=== PATIENT | male | born 1995 | race African-American/Black ===

== ENCOUNTER 2021-10-28 22:22 | Emergency (ER) | payer OTHER ==
[~2021-10-28] VITALS: Ht 180.3 cm; Wt 77.1 kg
[2021-10-28] MEDS ORDERED: IOHEXOL 300 MG/ML 100ML BOTTLE IJ ONE (22:40)
[2021-10-28] MEDS ORDERED: TETANUS-DIPTH-ACEL PERTUSSIS 0.5ML SYR Tdap IM ONE (23:00)
[2021-10-28] MEDS ORDERED: MORPHINE SULFATE INJ 2 MG/ml SYRG IV ONE (23:00)
[2021-10-28] MEDS ORDERED: ceFAZolin 1GM/50ML 100 ML IV ONE ×2 (23:00→23:15)
[2021-10-28 23:27] LABS: Basophils # (auto) 0 10 ^3/uL (0-0.2); Eosinophils # (auto) 0.1 10 ^3/uL (0-0.8); Hemoglobin 15.5 g/dL (13.5-17.5); Monocytes # (auto) 0.7 10 ^3/uL (0-1.3); Monocytes % (auto) 9.9 % (0.0-12.0); Nucleated Red Blood Cells % 0.1 %; White Blood Cell 7.2 10^3/uL (4.4-10.8)
[2021-10-28 23:36] LABS: Basophils % (auto) 0.5 % (0.0-2.0); Eosinophils % (auto) 1.2 % (0.0-7.0); Hematocrit 48.1 % (41.0-53.0); Lymphocytes # (auto) 1.4 10 ^3/uL (0.4-5.4); Mean Corpuscular Hemoglobin 27.7 pg (28.0-32.0); Mean Corpuscular Hgb Conc. 32.2 g/dL (32.0-36.0); Neutrophils # (auto) 4.9 10 ^3/uL (1.6-8.6); Neutrophils % (auto) 68.4 % (37.0-80.0); Red Blood Cells 5.59 10^6/uL (4.5-5.90); Red Cell Distribution Width 14.6 % (11.8-14.3)
[2021-10-28 23:37] LABS: Albumin 3.8 g/dL (3.4-5.0); Calcium 8.6 mg/dL (8.5-10.1); Potassium 3.1 mmol/L (3.5-5.1)
[2021-10-28 23:40] LABS: BUN/Creatinine Ratio 8.9; Bilirubin, Total 0.3 mg/dL (0.2-1.0)
[2021-10-29] VITALS: BP 131/88
[2021-10-29] MEDS ORDERED: POTASSIUM CHL 20 Meq TABLET PO ONE
[2021-10-29] MEDS ORDERED: LIDOCAINE 1% HCL (LOCAL ANESTH.) INJ 20ML MDV IJ ONE (00:15)
[2021-10-29] MEDS ORDERED: BACITRACIN TOP OINT 1 UD PKG TOP ONE (04:00)
== END 2021-10-29 05:43 | disposition home or self-care (01) ==
LOC: EDBD 22:22 → ER 22:22
DX: S41.112A Laceration without foreign body of left upper arm, initial encounter (principal); M85.612 Other cyst of bone, left shoulder; X99.1XXA Assault by knife, initial encounter; Y93.89 Activity, other specified; Y92.89 Other specified places as the place of occurrence of the external cause; Y99.8 Other external cause status
CPT/HCPCS: 12002; 36415; 73200; 80053; 85025; 86850; 86900; 86901; 90471; 90715; 93005; 96365; 96375; 99285; J0690; J2001; J2270; Q9967

== ENCOUNTER 2021-11-10 07:44 | Emergency (ER) | payer OTHER ==
[~2021-11-10] VITALS: Ht 170.2 cm; Wt 65.0 kg
[2021-11-10 09:50] VITALS: BP 107/78
== END 2021-11-10 10:03 | disposition home or self-care (01) ==
LOC: ER 07:54
DX: S41.112D Laceration without foreign body of left upper arm, subsequent encounter (principal); X58.XXXD Exposure to other specified factors, subsequent encounter